=== PATIENT | male | born 1950 | race Caucasian/White ===

== ENCOUNTER 2019-04-14 06:34 | Outpatient (CLI) | payer MEDICARE ==
[~2019-04-14] VITALS: Ht 175.3 cm; Wt 144.2 kg
[2019-04-14 14:05] VITALS: BP 137/80
[2019-04-14 14:42] LABS: BILIRUBIN,URINE NEGATIVE (NEGATIVE); CLARITY,URINE CLEAR; COLOR,URINE YELLOW; GLUCOSE, URINE (UA) 4+ (NEGATIVE); KETONES,URINE NEGATIVE (NEGATIVE); LEUKOCYTE ESTERASE ,URINE 1+ (NEGATIVE); NITRITE,URINE NEGATIVE (NEGATIVE); PH,URINE 6 (5-9); PROTEIN,URINE NEGATIVE (NEGATIVE); UROBILINOGEN,URINE NORMAL (NORMAL)
[2019-04-14 14:44] LABS: BASOPHILS # (AUTO) 0.1 10^3/uL (0.0-0.1); BASOPHILS % (AUTO) 1 % (0-10); EOSINOPHILS # (AUTO) 0.1 10^3/uL (0.0-0.3); EOSINOPHILS % (AUTO) 1 % (0-10); HEMATOCRIT 41 % (40-54); HEMOGLOBIN 13.7 G/DL (13.3-17.7); LYMPHOCYTES # (AUTO) 1.6 X 10^3 (1.0-4.0); LYMPHOCYTES % (AUTO) 13 % (12-44); MEAN CORPUSCULAR HEMOGLOBIN 28 PG (25-34); MEAN CORPUSCULAR HGB CONC 33 G/DL (32-36); MEAN CORPUSCULAR VOLUME 84 FL (80-99); MEAN PLATELET VOLUME 11.9 FL (7.4-10.4); MONOCYTES # (AUTO) 1.1 X 10^3 (0.0-1.0); MONOCYTES % (AUTO) 9 % (0-12); NEUTROPHILS # (AUTO) 9.5 X 10^3 (1.8-7.8); NEUTROPHILS % (AUTO) 77 % (42-75); PLATELET COUNT 268 10^3/uL (130-400); RED CELL DISTRIBUTION WIDTH 14.1 % (10.0-14.5); WHITE BLOOD COUNT 12.4 10^3/uL (4.3-11.0)
[2019-04-14 14:47] LABS: SMEAR SCAN COMMENT YES
--- NOTE | 2019-04-14 14:52 | Diagnostic Imaging Report ---
INDICATION: Preop for left total knee replacement EXAMINATION: PA and lateral views of the chest. FINDINGS: The heart size and vascularity are normal. Lungs are clear. There is no effusion. There is no acute bony abnormality. IMPRESSION: No acute abnormality is seen. Dictated by: Dictated on workstation # [id number]
[2019-04-14 15:00] LABS: BACTERIA,URINE FEW /HPF; PROTHROMBIN TIME PATIENT 13.5 SEC (12.2-14.7)
[2019-04-14 15:11] LABS: ALANINE AMINOTRANSFERASE 72 U/L (0-55); ALBUMIN 4.4 GM/DL (3.2-4.5); ALKALINE PHOSPHATASE 112 U/L (40-136); BILIRUBIN,TOTAL 0.5 MG/DL (0.1-1.0); BUN/CREATININE RATIO 10; CALCIUM 9.6 MG/DL (8.5-10.1); CARBON DIOXIDE 23 MMOL/L (21-32); CHLORIDE 99 MMOL/L (98-107); CREATININE SERUM 0.87 MG/DL (0.60-1.30); GFR ESTIMATED > 60; GLUCOSE 316 MG/DL (70-105); POTASSIUM 4.5 MMOL/L (3.6-5.0); SODIUM 134 MMOL/L (135-145); TOTAL PROTEIN 7.6 GM/DL (6.4-8.2)
[2019-04-14 15:14] LABS: ERYTHROCYTE SEDIMENTATION RATE 18 MM/HR (0-30)
[2019-04-14] MEDS ORDERED: ASPI-983 PO (15:59)
[2019-04-14] MEDS ORDERED: IRBE300T18 PO (15:59)
[2019-04-14] MEDS ORDERED: NA P133E22 RC (15:59)
[2019-04-14] MEDS ORDERED: INSU100V16 SQ (15:59)
[2019-04-14] MEDS ORDERED: FLUT16SP22 NS (15:59)
[2019-04-14] MEDS ORDERED: MAGN400O7 PO (15:59)
[2019-04-14] MEDS ORDERED: ACET325T38 PO ×2 (15:59)
[2019-04-14] MEDS ORDERED: AMLO5TAB4 PO (15:59)
[2019-04-14] MEDS ORDERED: BISA10SU58 RC (15:59)
[2019-04-14] MEDS ORDERED: NYST1POW22 TOP (15:59)
[2019-04-14] MEDS ORDERED: [UNRECOGNIZED DRUG - CODE] PO (15:59)
[2019-04-14] MEDS ORDERED: ATOR10TA PO (15:59)
[2019-04-14] MEDS ORDERED: CITA20TA12 PO (15:59)
[2019-04-14] MEDS ORDERED: INSA70301U SQ (15:59)
== END 2019-04-14 15:00 | disposition home or self-care (01) ==
LOC: PREOP 06:34
PROVIDERS: ATTEND Orthopaedic Surgery
DX: Z01.812 Encounter for preprocedural laboratory examination (principal); Z01.811 Encounter for preprocedural respiratory examination; Z01.810 Encounter for preprocedural cardiovascular examination; M17.12 Unilateral primary osteoarthritis, left knee
CPT/HCPCS: 36415; 71046; 80053; 81000; 85025; 85610; 85652; 86850; 86900; 86901; 87077; 87081; 87088; 93005

== ENCOUNTER 2019-04-20 06:07 | Inpatient (IN) | payer MEDICARE, MEDICAID ==
--- NOTE | 2019-04-13 18:31 | HISTORY AND PHYSICAL ---
DATE OF SERVICE: INPATIENT ADMISSION DATE OF ADMISSION: 04/20/2019. This will be for inpatient admission on 04/20/2019, for left total knee arthroplasty. HISTORY OF PRESENT ILLNESS: The patient is a 68-year-old gentleman with progressive worsening left knee pain. Radiographs reveal severe medial and patellofemoral arthrosis. He has undergone treatment with injections without relief. He reports functional impairment and limitations because of the knee and due to failure to improve with conservative measures, the patient elected to proceed with surgical intervention. REVIEW OF SYSTEMS: No recent chest pain, shortness of breath or dysuria. PAST MEDICAL HISTORY: Allergic rhinitis, chronic renal failure, constipation, COPD, diabetes type 2, hyperlipidemia, and hypertension. PAST SURGICAL HISTORY: Cholecystectomy. FAMILY HISTORY: Noncontributory. PRIMARY CARE PROVIDER: Dr. Gold. MEDICATIONS: Aspirin, acetaminophen, Flonase, Humalog, irbesartan, Levemir, Lipitor, Milk of Magnesia, Norvasc, tramadol, calcium, loratadine, NovoLog, and Prilosec. ALLERGIES: No known drug allergies. SOCIAL HISTORY: The patient chews one can of tobacco per day. Occasional cigarette usage. Does drink alcohol regularly. PHYSICAL EXAMINATION: GENERAL: The patient is a well-developed, well-nourished, in no acute distress. HEENT: Normocephalic, atraumatic. Pupils are equal, round, reactive to light. Oropharynx is clear. NECK: Supple, no lymphadenopathy. LUNGS: Clear to auscultation bilaterally. HEART: Regular rate and rhythm. ABDOMEN: Soft, nontender, nondistended. EXTREMITIES: The left knee demonstrates varus alignment. He has moderate effusion. He has patellofemoral crepitus with range of motion 0/5/120. He is tender along the medial femoral condyle and lateral femoral condyle. There is no varus valgus laxity. Negative anterior and posterior drawer. IMPRESSION: Left knee osteoarthritis. PLAN: Left total knee arthroplasty. The risks, benefits, options, ramifications and recovery were discussed at length with the patient. He understands and wishes to proceed. Specifically, the patient is at high risk for complications due to his associated comorbidities. The patient will require regular inpatient admission due to pain management, gait abnormalities and comorbidities. Date of surgery will be 04/20/2019. Job ID: [id number] DocumentID: [id number] Dictated Date: 04/10/2019 14:49:54 Residential Aide Date: 04/10/2019 15:12:47 Dictated By: APRIL URIBE MD
--- NOTE | 2019-04-14 16:01 | NUR ---
UPDATED MED REC WITH MEDICATION REVIEW REPORT FROM [facility] THAT WAS SENT OVER BY PREOP NURSE.
[2019-04-20] VITALS (11 sets, daily range): BP systolic 117–172; BP diastolic 75–87
[~2019-04-20] VITALS: Ht 175.3 cm; Wt 144.2 kg
[~2019-04-20 06:07] MED LIST: ACET325T38 PO; AMLO5TAB4 PO; ASPI-983 PO; ATOR10TA PO; BISA10SU58 RC; CITA20TA12 PO; FLUT16SP22 NS; INSA70301U SQ; INSU100V16 SQ; IRBE300T18 PO; MAGN400O7 PO; NA P133E22 RC; NYST1POW22 TOP; [UNRECOGNIZED DRUG - CODE] PO
[2019-04-20] MEDS: LACTATED RINGERS 1,000 ML IV PRN ×2 (06:45→07:43)
[2019-04-20] MEDS ORDERED: CEFUROXIME INJECTION 1,500 MG in WATER (STERILE) FOR INJECTION 15 ML IV ONE (06:45)
[2019-04-20] MEDS ORDERED: SEVOFLURANE (ULTANE) 15 ML INHAL SOLN ONE (06:54)
[2019-04-20] MEDS ORDERED: LIDOCAINE PF 2% 5 ML (XYLOCAINE) VIAL ONE (06:54)
[2019-04-20] MEDS ORDERED: ONDANSETRON 4 MG/2 ML (SDV) Z0FRAN ONE (06:54)
[2019-04-20] MEDS ORDERED: proPOfol 200 MG/20 ML (DIPRIVAN) VIAL IV ONE (06:54)
[2019-04-20] MEDS ORDERED: BUPIVACAINE 0.5% 30 ML (SENSORCAINE) VIAL ONE (06:54)
[2019-04-20] MEDS ORDERED: MIDAZOLAM 2 MG/2 ML (VERSED) VIAL ONE (06:55)
[2019-04-20] MEDS ORDERED: fentaNYL INJECTION 100 MCG/2 ML AMP ONE ×2 (06:55→07:48)
[2019-04-20] MEDS ORDERED: morphine PCA 100 MG/100 ML BAG IV PRN (07:15)
[2019-04-20] MEDS ORDERED: ACETAMINOPHEN 325 MG TABLET PO PRN (07:15)
[2019-04-20] MEDS ORDERED: CATHETER FLUSH 10 ML SYR IV PRN (07:15)
[2019-04-20] MEDS ORDERED: diphenhydrAMINE 50 MG/ML INJ (BENADRYL) IVP PRN (07:15)
--- NOTE | 2019-04-20 07:23 | Progress Note-Pre Operative ---
Pre-Operative Progress Note H&P Reviewed The H&P was reviewed, patient examined and no changes noted. Date Seen by Provider: Apr 20, 2019 Time Seen by Provider: 07:11 Date H&P Reviewed: Apr 20, 2019 Time H&P Reviewed: 07:23 Pre-Operative Diagnosis: left knee primary osteoarthritis APRIL URIBE MD Apr 20, 2019 07:23
--- NOTE | 2019-04-20 07:24 | Progress Note-Post Operative ---
Post-Operative Progess Note Surgeon (s)/Neurology Stroke Physician (s) Surgeon APRIL URIBE MD Neurology Stroke Physician: Jefe Peña Pre-Operative Diagnosis left knee primary osteoarthritis Post-Operative Diagnosis left knee primary osteoarthritis Procedure & Operative Findings Date of Procedure 04/20/19 Procedure Performed/Findings left total knee arthroplasty Anesthesia Type GETA Estimated Blood Loss Estimated blood loss (mL): minimal Specimens/Packing Specimens Removed none Packing: none APRIL URIBE MD Apr 20, 2019 07:24
[2019-04-20] MEDS ORDERED: OXYC1TAB87 PO (07:28)
--- NOTE | 2019-04-20 07:28 | D/C HH Face to Face Order ---
D/C Face to Face Orders Reconcile Patient Problems Problems Reviewed?: Yes Instructions for Patient Via Rachel[facility]BI, Patient Instructions/FollowUp: three weeks Physician to follow Patient: three weeks Discharge Diet for Home: ADA Diet Patient Data-Allergies,Ht & Wt Patient Allergies: Coded Allergies: No Known Drug Allergies (Unverified , 04/14/19) Height (Feet): 5 Height (Inches): 9.00 Weight (Pounds): 318 Weight (Ounces): 0.0 Home Health Need/Face to Face Date of Face to Face: Apr 20, 2019 Clinical Findings: Instability, Muscle weakness, Non or partial weight bearing, Pain with ambulation, Unsteady gait I have seen Pt ashe-my-vnli: Yes Discharged To: Home Diagnosis/Conditions: left total knee arthroplasty Patient is Homebound due to: Elio fall risk due to instabilty, Muscle weakness, Pain w/ambulation Homebound Status Due to the above stated illness, injury or surgical procedure (medical condition or diagnosis) and associated clinical findings, the patient is homebound because of his/her inability to leave home except with aid of a supportive device and/or person AND leaving the home requires a considerable and taxing effort or is medically contraindicated. Pt req the following assistanc: [facility] Nursing Orders Home Health Services Order: Physical Therapy-Evaluate & Treat DC left knee regulo and apply steri strips 05/03/19 Home Health Infusion Therapy Line Start Date: Apr 20, 2019 Therapy Orders Therapy Orders: Physical Therapy, PT to assess for OT Therapy Specific Orders: Eval assistive deivces, Teach enviro mod ifications/safety, Gait training, Increase strength/endurance, Provider maintenance therapy, Restore ROM Certify Stmt I certify that this patient is under my care and that I, a nurse practitioner or a physician; a perinatal breastfeeding assistant working with me, had a face to face encounter that - meets the physician face to face encounter requirements with this patient as dated. APRIL URIBE MD Apr 20, 2019 07:28
[2019-04-20] MEDS ORDERED: INTRA-ARTICULAR IU ONE ×5 (08:00)
[2019-04-20] MEDS ORDERED: TRANEXAMIC ACID 100 MG/ML 10 ML INJECTION IV ONE (08:06)
[2019-04-20] MEDS ORDERED: ESMOLOL 100 MG/10 ML (BREVIBLOC) VIAL ONE (08:06)
[2019-04-20] MEDS ORDERED: ROCURONIUM 10 MG/ML 5 ML SYRINGE IV ONE (08:06)
[2019-04-20] MEDS ORDERED: SUCCINYLCHOLINE INJ 100 MG/5 ML SYR ONE (08:06)
[2019-04-20] MEDS ORDERED: NEOSTIGMINE 3 MG/3 ML VIAL ONE (08:38)
[2019-04-20] MEDS ORDERED: GLYCOPYRROLATE 0.2 MG/ML (ROBINUL) 2 ML VIAL ONE (08:38)
[2019-04-20] MEDS ORDERED: morphine INJ 10 MG/ML 1ML (SYR OR VIAL) ONE (09:18)
[2019-04-20] MEDS ORDERED: ONDANSETRON 4 MG/2 ML (SDV) Z0FRAN IVP PRN (09:30)
[2019-04-20] MEDS ORDERED: morphine INJ 10 MG/ML 1ML (SYR OR VIAL) IVP ONE (09:30)
--- NOTE | 2019-04-20 09:52 | Diagnostic Imaging Report ---
CLINICAL INDICATION: Postop left knee. EXAM: X-ray of the left knee, AP and lateral views. COMPARISON: None. FINDINGS: There are postop changes with the left knee arthroplasty components in good position. There is air overlying the left knee joint region and soft tissue. Anterior knee skin regulo and a compression device overlying the anterior knee are seen. IMPRESSION: Left total knee arthroplasty with immediate postop changes. There is no unexpected radiodense foreign object. Dictated by: Dictated on workstation # [id number]
--- NOTE | 2019-04-20 11:09 | Progress Note ---
Standard Progress Note Progress Notes/Assess & Plan Date Seen by a Provider: Apr 20, 2019 Time Seen by a Provider: 09:25 Progress/Assessment & Plan no complaint radiographs--HW well positioned without fracture LLE-- 2 plus DP pulse with brisk cap refill. Intact DF and PF of toes and ankle. sensation intact throughout. s/p LTKA mobilize as able APRIL URIBE MD Apr 20, 2019 11:09
[2019-04-20] MEDS: NS IV 1000 ML 1,000 ML IV SCH ×2 (12:15→22:00)
[2019-04-20] MEDS: SENNA W/DOCUSATE (SENOKOT S) TABLET PO SCH ×2 (12:17→20:43)
--- NOTE | 2019-04-20 13:01 | OPERATIVE REPORT ---
DATE OF SERVICE: 04/20/2019 PREOPERATIVE DIAGNOSIS: Left knee primary osteoarthritis. POSTOPERATIVE DIAGNOSIS: Left knee primary osteoarthritis. PROCEDURE: Left total knee arthroplasty. SURGEON: Shaq Uribe MD CHIEF ARCHITECT: Jefe Peña, who assisted throughout the procedure and closed the incision. ANESTHESIA: General endotracheal plus regional nerve block by Jenniffer Baldwin CRNA. TOURNIQUET TIME: 70 minutes at 300 mmHg. ESTIMATED BLOOD LOSS: Minimal. DRAINS: None. COMPLICATIONS: None. POSTOPERATIVE PLAN: As per routine protocol. The patient was transferred to the recovery room awake and in stable condition. MATERIALS: Microport cemented size 6 femur, cemented size 6 tibia with 50 mm stem and a 10 mm insert and a 35 cemented button. STATEMENT OF MEDICAL NECESSITY: The patient is a 68-year-old gentleman with progressively worsening left knee pain. Radiographs revealed severe tricompartmental osteoarthritis. He had undergone treatment with injections, anti-inflammatories, and rest without relief. Due to functional impairment and failure to improve with conservative measures, the patient elected to proceed with surgical intervention. DESCRIPTION OF PROCEDURE: After risks and benefits of procedure were discussed and questions were answered and informed consent was signed and placed on the chart, the operative site was confirmed in the preoperative holding area initialed by the surgeon. The patient was transferred to the operating room and after adequate levels of general endotracheal anesthetic were obtained, a timeout was called, confirming the operative site. The left lower extremity was prepped and draped in the usual sterile fashion with the leg elevated and the knee flexed. Tourniquet was inflated to 300 mmHg. Standard anterior approach was utilized. Hemostasis was obtained with cautery. A medial parapatellar arthrotomy was performed leaving 1 cm cuff on the patella for later reattachment. A portion of the fat pad was resected. A subperiosteal release was performed on the proximal medial tibia being careful to stay on the bony surface. The ACL was resected. The intramedullary guide was passed into the femur. The distal cutting block was placed and distal cut was made. The femur was sized to a size 6 and 6 cutting block was placed parallel to the epicondylar axis and cuts were made from posterior to anterior. Subperiosteal release was then carefully performed on the posterior distal femur being careful to stay on the bony surface. Intramedullary guide was then passed into the tibia. The drop mo transected the intermalleolar axis. After pinning the cutting block in place, cut was made. The baseplate was positioned. The drop mo transected the intermalleolar axis. The cut was made. The tibia was prepared with the drill and keel punch. Due to his poor bone quality, it was elected to place a stem. The femoral trial was placed and the trochlear cut was made. The patella was then prepared by using the freehand technique and resecting 10 mm off the undersurface. The peg guide was placed and the peg holes were drilled. The trials were inserted with 10 mm insert. Full extension was easily obtained and 120 degrees of flexion with gravity was easily obtained. The patella tracked well. There was no anterior/posterior or medial/lateral laxity in flexion or extension. The trials were removed. The joint was irrigated with pulse lavage. Periarticular block was placed in the posterior capsule, medial and lateral retinaculum and extensor mechanism as well as the subcutaneous tissue. The bone ends were irrigated and dried and the tibia was cemented into position. Excessive cement was removed. Once excessive cement was removed, the superior surface was irrigated and dried. The polyethylene insert was placed. Distal femur was irrigated and dried and the femoral prosthesis was cemented into position. Excessive cement was removed. The knee was brought into full extension. Once cement had cured, the undersurface of patella was irrigated and dried. The patellar button was cemented into position. Excessive cement was removed. Once the cement had cured, the knee was taken through range of motion. There was no anterior/posterior or medial/lateral laxity in flexion or extension. The patella tracked well. The joint was further irrigated with pulse lavage. The arthrotomy was closed with #2 Tevdek in [id number]-ofwwd interrupted fashion. The knee was flexed. Patella tracked well with no undue tension at the repair site. Subcutaneous tissues were irrigated using a total of 6 liters throughout the procedure. A 0 Vicryl was used throughout the procedure. A 0 Vicryl was used to close the deep subcutaneous layer, 2-0 Vicryl for the superficial subcutaneous layer. [place] were used on the skin. A soft dressing was applied. The patient was transferred to the recovery room awake and in stable condition. Job ID: [id number] DocumentID: [id number] Dictated Date: 04/20/2019 09:14:10 Aquatics Coordinator Date: 04/20/2019 13:00:09 Dictated By: SHAQ URIBE MD
--- NOTE | 2019-04-20 13:27 | History & Physical-Hospitalist ---
History of Present Illness HPI/Chief Complaint Patient is a 68y/o male that was admit for observation following surgery on his left knee today. The patient says that he hurt his knee years ago in a hurting accident and waited to have surgery until now because it started to cause him pain recently. He denies nausea, vomiting, dizziness, chest pain, cough, SOB, stomach pain, numbness, tingling, weakness. Patient was still groggy from sedation from surgery. Source: patient Date Seen 04/20/19 Time Seen by a Provider: 13:20 Attending Physician Shaq Marshall MD PCP No,Local Physician Referring Physician Date of Admission Apr 20, 2019 at 06:07 Home Medications & Allergies Home Medications Reviewed patient Home Medication Reconciliation performed by pharmacy medication reconciliations special systems technician and/or nursing. Patients Allergies have been reviewed. Allergies Allergies Coded Allergies No Known Drug Allergies (Unverified04/14/19) Past Dikfnzi-Ydyhpd-Wzommd Hx Patient Social History Alcohol Use: Rarely Uses Recreational Drug Use: No Smoking Status: Current Everyday Smoker Type Used: Cigarettes Physical Abuse Screen: No Sexual Abuse: No Recent Foreign Travel: No Contact w/other who traveled: No Recent Hopitalizations: No Recent Infectious Disease Expo: No Immunizations Up To Date Date of Pneumonia Vaccine: Jun 11, 2017 Seasonal Allergies Seasonal Allergies: Yes Past Medical History Surgeries: Gallbladder Currently Using CPAP: Yes (didn't bring own cpap) Gastrointestinal: Gastroesophageal Reflux, Chronic Constipation Musculoskeletal: Arthritis Psychosocial: Depression History of Blood Disorders: No Family History Diabetes mellitus 19 MOTHER G8 BROTHER Review of Systems Constitutional: see HPI Respiratory: see HPI Cardiovascular: see HPI Gastrointestinal: see HPI Psychiatric/Neurological: See HPI Physical Exam Physical Exam Vital Signs Vital Signs - First Documented 04/20/19 06:30 Temp 98.0 Pulse 76 Resp 20 B/P (MAP) 133/75 Capillary Refill : Less Than 3 Seconds Height, Weight, BMI Height: 5'9.00" Weight: 318lbs. 0.0oz. 144.657738qt; 47.0 BMI Method: General Appearance: No Apparent Distress, WD/WN Respiratory: Chest Non Tender, Lungs Clear, Normal Breath Sounds, No Accessory Muscle Use, No Respiratory Distress Cardiovascular: Regular Rate, Rhythm, No Edema, No Gallop, No JVD, No Murmur, Normal Peripheral Pulses Gastrointestinal: Normal Bowel Sounds, No Pulsatile Mass, Non Tender, Soft Extremity: Normal Capillary Refill, Non Tender, No Calf Tenderness, No Pedal Edema Neurologic/Psychiatric: Other (Patient was still groggy from sedation following surgery.) Skin: Warm/Dry Results Results/Procedures Labs Patient resulted labs reviewed. Assessment/Plan Admission Diagnosis Left knee surgery Assessment and Plan Left knee surgery - bmp and lipid panel - blood glucose - PT/OT - Aspirin - pain meds IDDM - monitor blood sugar - continue insulin tx HTN - monitor BP and restart amlodipine if SBP rises over 130 - continue ARB High cholesterol - restart atrovostatin AVELINO - get CPAP is patient stays overnight FENGIPPX regular diet SCDs and OPAL AUGUSTE,MED STUDENT Apr 20, 2019 13:27
--- NOTE | 2019-04-20 13:58 | Consultation - Hospitalist ---
OPAL CÁRDENAS,MED STUDENT 04/20/19 1:58pm: HPI History of Present Illness: HPI/Chief Complaint Patient is a 68y/ male was admitted following his left total knee replacement. patient denies headache, nausea, vomiting, dizziness, chest pain, cough, SOB, stomach pain, weakness, numbness, tingling. Patient was groggy, most likely d/t sedation from surgery Source: patient Date Seen 04/20/19 Attending Physician Shaq Marshall MD PCP No,Local Physician Referring Physician Date of Admission Apr 20, 2019 at 06:07 Home Medications & Allergies Home Medications Reviewed patient Home Medication Reconciliation performed by pharmacy medication reconciliations diesel automotive technician and/or nursing. Patients Allergies have been reviewed. Allergies Allergies Coded Allergies No Known Drug Allergies (Unverified04/14/19) Past Swxzvxd-Fozvhb-Ahisjk Hx Patient Social History Alcohol Use: Rarely Uses Recreational Drug Use: No Smoking Status: Current Everyday Smoker Type Used: Cigarettes Physical Abuse Screen: No Sexual Abuse: No Recent Foreign Travel: No Contact w/other who traveled: No Recent Hopitalizations: No Recent Infectious Disease Expo: No Immunizations Up To Date Date of Pneumonia Vaccine: Jun 11, 2017 Seasonal Allergies Seasonal Allergies: Yes Past Medical History Surgeries: Gallbladder Currently Using CPAP: Yes (didn't bring own cpap) Gastrointestinal: Gastroesophageal Reflux, Chronic Constipation Musculoskeletal: Arthritis Psychosocial: Depression History of Blood Disorders: No Family History Diabetes mellitus 19 MOTHER G8 BROTHER Review of Systems Constitutional: see HPI Respiratory: see HPI Gastrointestinal: see HPI Psychiatric/Neurological: See HPI Physical Exam Physical Exam Vital Signs Vital Signs - First Documented 04/20/19 06:30 Temp 98.0 Pulse 76 Resp 20 B/P (MAP) 133/75 Capillary Refill : Less Than 3 Seconds Height, Weight, BMI Height: 5'9.00" Weight: 318lbs. 0.0oz. 144.989227fx; 47.0 BMI Method: General Appearance: No Apparent Distress, WD/WN, Obese Respiratory: Chest Non Tender, Lungs Clear, Normal Breath Sounds, No Accessory Muscle Use, No Respiratory Distress Cardiovascular: Regular Rate, Rhythm, No Edema, No Gallop, No JVD, Normal Peripheral Pulses Gastrointestinal: No Pulsatile Mass, Non Tender, Soft Extremity: Normal Capillary Refill, Non Tender, No Calf Tenderness, No Pedal Edema Neurologic/Psychiatric: Other (still groggy, most likely d/t sedation from surgery ) Skin: Normal Color, Warm/Dry Results Results/Procedures Labs Patient resulted labs reviewed. Assessment/Plan Assessment and Plan Assess & Plan/Chief Complaint Left knee surgery - management per primary IDDM - monitor blood sugar - continue insulin tx HTN - monitor BP and restart amlodipine as needed - continue ARB High cholesterol - restart atorvastatin FENGIPPX diabetic diet SCDs and ASA and lovenox SHIRA JMIENEZ MD 04/20/19 3:25pm: HPI History of Present Illness: HPI/Chief Complaint Pt is a 68CM with a PMH of IDDMII, HTN who was admitted postoperatively following left TKA. He denies any complaints to me at this time. States his pain is present but manageable and is about to work with PT. No other complaints or concerns. I am consulted for medical management. Referring Physician Dr Marshall Past Oairxcz-Qzxnrl-Tikeov Hx Past Med/Social Hx: Reviewed Nursing Past Med/Soc Hx Family History Reviewed Nursing Family Hx Diabetes mellitus 19 MOTHER G8 BROTHER Assessment/Plan Assessment and Plan Assess & Plan/Chief Complaint Consulted for medical management. Continue management of postop TKA per primary. Will resume insulin for IDDM. Hold BP meds currently due to hypotension. Diagnosis/Problems Diagnosis/Problems (1) Insulin dependent diabetes mellitus Status: Chronic (2) Essential (primary) hypertension Status: Chronic (3) Osteoarthritis of left knee Qualifiers: Osteoarthritis type: primary Qualified Codes: M17.12 - Unilateral primary osteoarthritis, left knee Supervisory-Addendum Brief Verification & Attestation Participated in pt care: history, MDM, physical Personally performed: exam, history, MDM, supervision of care Care discussed with: Medical Student Procedures: n/a Results interpretation: Verified all documentation Verification and Attestation of Medical Student E/M Service A medical student performed and documented this service in my presence. I reviewed and verified all information documented by the medical student and made modifications to such information, when appropriate. I personally performed the physical exam and medical decision making. Shira Jimenez, Apr 20, 2019,15:23 OPAL CÁRDENAS,MED STUDENT Apr 20, 2019 1:58 pm SHIRA JIMENEZ MD Apr 20, 2019 3:25 pm
--- NOTE | 2019-04-20 14:32 | NUR ---
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 He wished to pray together for health and encouragement. Pt states he is determined to make changes in his health so he can return to fishing and other activities he once enjoyed.
--- NOTE | 2019-04-20 14:51 | Physical Therapy Evaluation ---
PT Evaluation-General Medical Diagnosis Admission Date Apr 20, 2019 at 06:07 Medical Diagnosis: left TKA Onset Date: Apr 20, 2019 Therapy Diagnosis Therapy Diagnosis: impaired mobility, strength, endurance, ROM Height/Weight Height (Feet): 5 Height (Inches): 9.00 Weight (Pounds): 318 Weight (Ounces): 0.0 Precautions Precautions/Isolations: Fall Prevention, Standard Precautions Weight Bear Status Weight Bearing/Tolerated Referral Physician: Jefe Peña Reason for Referral: Evaluation/Treatment Medical History Pertinent Medical History: COPD, DM, HTN Additional Medical History hyperlipidemia, chronic renal failure, constipation, cholecystectomy Social History Home: Single Level Current Living Status: Alone Entry Into Home: Level Entry Prior/Core FIM Prior Level of Function Therapy Code Descriptions/Definitions Functional [place] Measure: 0=Not Assessed/NA 4=Minimal Assistance 1=Total Assistance 5=Supervision or Setup 2=Maximal Assistance 6=Modified [place] 3=Moderate Assistance 7=Complete [place] Therapy Quality Codes: 6 Independent with activity with or without an assistive device 5 Patient requires set up or clean up by helper. Patient completes activity by themselves 4 Supervision or touching assist (CGA). [place] provide cues , steadying assist 3 The helper provides less than half the effort to complete the activity 2 The helper provides more than half the effort to complete the activity 1 Dependent. The helper does all the effort to complete an activity 7 Patient refused to complete or attempt activity 9 The patient did not perform the activity before the current illness or injury 88 Not attempted due to Medical conditions or safety concerns Functional Abilities and Goals: Independent: Patient completed the activities by him/herself, with or without an assistive device, with no assistance from a helper. Needed Some Help: Patient needed partial assistance from another person to complete activities. Dependent: A helper completed the activities for the patient. Unknown: Not Applicable: Bed Mobility: 6 Transfers (B,C,W/C) (FIM): 6 Gait: 6 Indoor Mobility (Ambulation): Independent Patient states he was using a rolling walker previously. PT Evaluation-Current Subjective Patient in bed pre tx, agrees to PT, has 7/10 pain in left knee. Patient is very drowsy. Pt/Family Goals to be independent at home Objective Patient Orientation: Person, Place, Situation Attachments: Oxygen, IV ROM/Strength ROM Lower Extremities left knee extension +5 degrees, flexion 50 degrees Sensory Vision: Functional Hearing: Functional Sensation Right Lower Extremit: Intact Sensation Left Lower Extremity: Intact Transfers Therapy Code Descriptions/Definitions Functional [place] Measure: 0=Not Assessed/NA 4=Minimal Assistance 1=Total Assistance 5=Supervision or Setup 2=Maximal Assistance 6=Modified [place] 3=Moderate Assistance 7=Complete [place] Transfers (B, C, W/C) (FIM): 2 Scootin Rollin Supine to/from Sit: 2 Sit to/from Stand: 4 Patient stood at the edge of the bed, he is not able to bear weight on his left knee, it thomas with weight bearing. He is able to take a couple of side steps (mostly hopping on his right leg) toward the head of the bed and sit back down. Patient is very drowsy and needs directions repeated frequently. Balance Sitting Static: Good Sitting Dynamic: Good Standing Static: Fair Standing Dynamic: Fair Treatment Supine TKA exercises x10 left side (AP, QS, HS, SAQ, SLR), CPM donned and fit to patient's leg and set to 45/-2. Polar care on. Assessment/Needs Patient has impaired mobility, strength, endurance, ROM post left TKA. He is very drowsy and cannot bear much weight on is left leg. Rehab Potential: Fair PT Short Term Goals Short Term Goals Time Frame: Apr 27, 2019 Transfers (B,C,W/C) (FIM): 4 Gait (FIM): 1 Gait Distance Comment: 40' Gait Level of Assist: 4 Gait Assistive Device: FWW PT Plan Problem List Problem List: Activity Tolerance, Functional Strength, Safety, Balance, Gait, Transfer, Bed Mobility, ROM Treatment/Plan Treatment Plan: Continue Plan of Care Treatment Plan: Bed Mobility, Education, Functional Activity Carlos, Functional Strength, Gait, Safety, Therapeutic Exercise, Transfers Treatment Duration: Apr 27, 2019 Frequency: 11 times per week Estimated Hrs Per Day: .25 hour per day Patient and/or Family Agrees t: Yes Safety Risks/Education Patient Education: Gait Training, Transfer Techniques, Correct Positioning, Safety Issues Teaching Recipient: Patient Teaching Methods: Demonstration, Discussion Response to Teaching: Reinforcement Needed Discharge Recommendations Plan Patient will perform bed mobility and transfer training, balance and endurance training, functional strengthening, stair training, gait training, and education, to improve functional mobility and independence at home. Therapy D/C Recommendations: Home w/ Family Support Time/GCodes Time In: 1417 Time Out: 1443 Total Billed Treatment Time: 26 Total Billed Treatment 1 visit RODERICKM 15' FA 11' BEAU SHER PT Apr 20, 2019 14:51
[2019-04-20] MEDS ORDERED: NA PHOS DI BA RC PRN (15:00)
[2019-04-20] MEDS ORDERED: NA PHOS M B RC PRN (15:00)
[2019-04-20] MEDS ORDERED: BISACODYL 10 MG SUPP (DULCOLAX) RC PRN (15:00)
[2019-04-20] MEDS ORDERED: FLEET ENEMA ADULT 1 EA BTL PR PRN (15:15)
[2019-04-20] MEDS ORDERED: CEFUROXIME INJECTION 750 MG in WATER (STERILE) FOR INJECTION 10 ML IV SCH (15:15)
[2019-04-20] MEDS: inSUlin ASPART (NovoLOG) 1 UNIT/0.01 ML (CHARGE PER UNIT) SC SCH (20:45)
[2019-04-20] MEDS: inSUlin ASPART/PROTA (NovoLOG 70/30) CHARGE PER UNIT SQ SCH (20:45)
[2019-04-20] MEDS: FLUTICASONE NASAL SPRAY (FLONASE) 16 GM BTL NS SCH (21:00)
[2019-04-21 00:25] VITALS: BP 139/89
[2019-04-21 04:00] VITALS: BP 146/83
[2019-04-21] MEDS: inSUlin ASPART (NovoLOG) 1 UNIT/0.01 ML (CHARGE PER UNIT) SC SCH ×4 (06:13→20:16)
[2019-04-21] MEDS: MULTIVIT W/MINERALS TAB (THERAGRAN M) PO SCH (06:13)
[2019-04-21] MEDS: inSUlin ASPART/PROTA (NovoLOG 70/30) CHARGE PER UNIT SQ SCH ×2 (06:14→17:08)
[2019-04-21 07:06] LABS: HEMOGLOBIN 11.2 G/DL (13.3-17.7)
--- NOTE | 2019-04-21 07:40 | Progress Note - Hospitalist ---
OPAL CÁRDENAS,MED STUDENT 04/21/19 7:40am: Subjective HPI/CC On Admission Date Seen by Provider: Apr 21, 2019 Time Seen by Provider: 06:45 Pt is a 68CM with a PMH of IDDMII, HTN who was admitted postoperatively following left TKA. He denies any complaints to me at this time. States his pain is present but manageable and is about to work with PT. No other complaints or concerns. I am consulted for medical management. Subjective/Events-last exam Patient says that he is feeling well and that the only thing that is bothering him is the pain in his L knee that comes and goes. He denies fever, chills, nausea, vomiting, headache, stomach pain, sob, chest pain. Objective Exam Vital Signs Vital Signs Date Time Temp Pulse Resp B/P (MAP) Pulse Ox O2 Delivery O2 Flow Rate FiO2 04/21/19 07:00 20 04/21/19 04:00 98.6 88 146/83 (104) 95 Nasal Cannula 2.00 Capillary Refill : Less Than 3 Seconds General Appearance: No Apparent Distress, WD/WN Respiratory: Chest Non Tender, Lungs Clear, Normal Breath Sounds, No Accessory Muscle Use, No Respiratory Distress Cardiovascular: Regular Rate, Rhythm, No Edema, No Gallop, No JVD, No Murmur, Normal Peripheral Pulses Gastrointestinal: No Pulsatile Mass, Soft, Tenderness (in RUQ and LUQ ) Extremity: Non Tender, No Calf Tenderness, No Pedal Edema Neurologic/Psychiatric: Oriented x3, No Motor/Sensory Deficits, Normal Mood/Affect Skin: Normal Color, Warm/Dry Results/Procedures Lab Laboratory Tests 04/21/19 06:31 Patient resulted labs reviewed. Assessment/Plan Assessment and Plan Assess & Plan/Chief Complaint Left knee surgery - management per primary IDDM - monitor blood sugar - continue insulin tx HTN - monitor BP and restart amlodipine as needed - continue ARB High cholesterol - restart atorvastatin CPAP - have family bring it from home FENGIPPX diabetic diet SCDs and ASA and lovenox Clinical Quality Measures DVT/VTE Risk/Contraindication: Risk Factor Score Per Nursin RFS Level Per Nursing on Admit: 4+=Very High SHIRA JIMENEZ MD 04/21/19 8:36am: Assessment/Plan Assessment and Plan Assess & Plan/Chief Complaint Doing well from medical point of view. Continue home meds. Continue PT/OT. Advised to bring in CPAP for AVELINO. Diagnosis/Problems Diagnosis/Problems (1) Osteoarthritis of left knee Qualifiers: Qualified Codes: M17.12 - Unilateral primary osteoarthritis, left knee (2) Essential (primary) hypertension Status: Chronic (3) Insulin dependent diabetes mellitus Status: Chronic Supervisory-Addendum Brief Verification & Attestation Participated in pt care: history, MDM, physical Personally performed: exam, history, MDM, supervision of care Care discussed with: Medical Student Procedures: n/a Results interpretation: Verified all documentation Verification and Attestation of Medical Student E/M Service A medical student performed and documented this service in my presence. I reviewed and verified all information documented by the medical student and made modifications to such information, when appropriate. I personally performed the physical exam and medical decision making. Shira Jimenez, Apr 21, 2019,08:36 OPAL CÁRDENAS,MED STUDENT Apr 21, 2019 7:40 am SHIRA JIMENEZ MD Apr 21, 2019 8:36 am
--- NOTE | 2019-04-21 07:47 | Anesthesia-General Post-Op ---
General Patient Condition Mental Status/LOC: Same as Preop Cardiovascular: Satisfactory Nausea/Vomiting: Absent Respiratory: Satisfactory Pain: Controlled Complications: Absent Post Op Complications Complications None Follow Up Care/Instructions Patient Instructions None needed. Anesthesia/Patient Condition Patient Condition Patient is doing well, no complaints, stable vital signs, no apparent adverse anesthesia problems. No complications reported per nursing. LEE DARBY CRNA Apr 21, 2019 07:47
--- NOTE | 2019-04-21 07:56 | Progress Note ---
Standard Progress Note Progress Notes/Assess & Plan Date Seen by a Provider: Apr 21, 2019 Time Seen by a Provider: 07:55 Progress/Assessment & Plan no complaint radiographs--HW well positioned without fracture LLE-- 2 plus DP pulse with brisk cap refill. Intact DF and PF of toes and ankle. sensation intact throughout. s/p LTKA mobilize as able Final Diagnosis no complaints less somnolent today Vital Signs Date Time Temp Pulse Resp B/P (MAP) Pulse Ox O2 Delivery O2 Flow Rate FiO2 04/21/19 07:00 20 04/21/19 04:00 98.6 88 23 146/83 (104) 95 Nasal Cannula 2.00 04/21/19 00:25 98.7 94 22 139/89 (106) 94 Nasal Cannula 2.00 04/20/19 20:00 98.7 85 18 137/84 (101) 98 Nasal Cannula 2.00 04/20/19 19:27 98 Nasal Cannula 2.00 04/20/19 16:00 98.1 92 18 117/77 (90) 98 Nasal Cannula 2.00 04/20/19 15:11 Nasal Cannula 2.00 04/20/19 12:00 20 04/20/19 10:10 Nasal Cannula 2 04/20/19 10:10 98.1 20 94 Nasal Cannula 2 04/20/19 10:00 18 94 Nasal Cannula 2 04/20/19 09:54 Nasal Cannula 2 04/20/19 09:52 Nasal Cannula 2 04/20/19 09:50 18 94 Nasal Cannula 2 04/20/19 09:40 OxyMask 6 04/20/19 09:40 18 95 OxyMask 6 04/20/19 09:30 18 96 OxyMask 6 04/20/19 09:25 OxyMask 6 04/20/19 09:20 18 96 OxyMask 6 04/20/19 09:13 OxyMask 6 04/20/19 09:13 97.8 24 96 OxyMask 6 I & O 04/21/19 07:00 Intake Total 2245 ml Output Total 975 ml Balance 1270 ml Laboratory Tests Test 04/20/19 16:25 04/20/19 20:28 04/21/19 05:15 04/21/19 06:31 Range/Units Glucometer 214 H 236 H 192 H 70-110 MG/DL Hemoglobin 11.2 L 13.3-17.7 G/DL Hematocrit 35 L 40-54 % LLE--dressing intact. NVI distally. Neg Ricardo's s/p LTKA reinforced the importance of ambulating/PT. APRIL URIBE MD Apr 21, 2019 07:56
[2019-04-21] MEDS: SENNA W/DOCUSATE (SENOKOT S) TABLET PO SCH ×2 (07:57→20:16)
[2019-04-21] MEDS: ASPIRIN E.C. 81 MG (ECOTRIN) TAB PO SCH ×2 (07:57→10:32)
[2019-04-21] MEDS: ATORVASTATIN 10 MG (LIPITOR) TABLET PO SCH (07:57)
[2019-04-21] MEDS: FLUTICASONE NASAL SPRAY (FLONASE) 16 GM BTL NS SCH ×2 (07:58→23:03)
[2019-04-21 08:00] VITALS: BP 145/87
[2019-04-21] MEDS ORDERED: ENOXAPARIN 30 MG/0.3 ML (LOVENOX) SYR SC SCH (08:00)
[2019-04-21] MEDS: ONDANSETRON 4 MG/2 ML (SDV) Z0FRAN IVP PRN (09:56)
--- NOTE | 2019-04-21 10:45 | Physical Therapy Daily Note ---
PT Daily Note-Current Subjective Patient states, "I can't move my leg. It hurts too much." PT educated patient on importance of exercise and ambulate to attain full benefit of elective procedure. Patient voices understanding. Pain Numeric Pain Scale: 8 Location: Left Location Body Site: Knee Pain Description: Acute Mental Status Patient Orientation: Person, Time, Situation Attachments: Oxygen, IV Transfers Therapy Code Descriptions/Definitions Functional [place] Measure: 0=Not Assessed/NA 4=Minimal Assistance 1=Total Assistance 5=Supervision or Setup 2=Maximal Assistance 6=Modified [place] 3=Moderate Assistance 7=Complete [place] Therapy Quality Codes: 6 Independent with activity with or without an assistive device 5 Patient requires set up or clean up by helper. Patient completes activity by themselves 4 Supervision or touching assist (CGA). [place] provide cues , steadying assist 3 The helper provides less than half the effort to complete the activity 2 The helper provides more than half the effort to complete the activity 1 Dependent. The helper does all the effort to complete an activity 7 Patient refused to complete or attempt activity 9 The patient did not perform the activity before the current illness or injury 88 Not attempted due to Medical conditions or safety concerns Transfers (B, C, W/C) (FIM): 5 Scootin Sit to/from Stand: 5 sit to stand transfer training x 3 sets/ patient ambulated to restroom for BM Weight Bearing Weight Bearing/Tolerated Gait Training Gait (FIM): 1 Distance (FIM): 1=up to 49 ft Distance: 15' Gait Level of Assist: 5 Gait Assistive Device: FWW slow, antalgic/extended UE's with FWW placement cues for body placement Exercises Seated Therapy Exercises: Ankle pumps, Long arc quads Seated Reps: 15 (2 sets AAROM left LE/AROM right LE) Assessment Patient tolerated minimal activity and requested to remain in restroom for BM. Call light in hand and nursing notified. PT Short Term Goals Short Term Goals Time Frame: Apr 27, 2019 Transfers (B,C,W/C) (FIM): 4 Gait (FIM): 1 Gait Distance Comment: 40' Gait Level of Assist: 4 Gait Assistive Device: FWW PT Plan Treatment/Plan Treatment Plan: Continue Plan of Care Treatment Plan: Bed Mobility, Education, Functional Activity Carlos, Functional Strength, Gait, Safety, Therapeutic Exercise, Transfers Treatment Duration: Apr 27, 2019 Frequency: 11 times per week Estimated Hrs Per Day: .25 hour per day Patient and/or Family Agrees t: Yes Time/GCodes Time In: 1009 Time Out: 1024 Total Billed Treatment Time: 15 Total Billed Treatment 1 visit FA 15 min JEAN URBANO PT Apr 21, 2019 10:45
[2019-04-21] MEDS: NS IV 1000 ML 1,000 ML IV SCH ×2 (10:55→20:21)
[2019-04-21 12:00] VITALS: BP 189/98
--- NOTE | 2019-04-21 13:04 | Discharge Inst-Skilled Nursing ---
Discharge Inst-Skilled NF Chief Complaint Pt is a 68CM with a PMH of IDDMII, HTN who was admitted postoperatively following left TKA. He denies any complaints to me at this time. States his pain is present but manageable and is about to work with PT. No other complaints or concerns. I am consulted for medical management. Patient Instructions Patient Problems: IDDMII, HTN, HLD, AVELINO Consult/Follow Up/Orders Follow Up Appt.: With Dr Marshall in 3 weeks. Skilled NF Admit to: [facility] Certification (SNF) I certify that SNF services are required to be given on an inpatient basis because of the above named patient's need for nursing home care on a continuing basis for the conditions(s) for which he/she was receiving inpatient hospital services prior to his/her transfer to the SNF. [facility] Facility Order: Nursing Services, Environmental Department Manager-Evaluate & Treat, Physical Therapy-Evaluate & Treat Oxygen Delivery Method: Nasal Cannula Discharge Diet: ADA Diet Daily Activity as Tolerated: Yes New & Resume Previous Orders Shira Jimenez Apr 21, 2019 13:02 SHIRA JIMENEZ MD Apr 21, 2019 1:04 pm
--- NOTE | 2019-04-21 15:19 | Occupational Therapy Eval ---
OT Evaluation-General/PLF Medical Diagnosis Admission Date Apr 20, 2019 at 06:07 Medical Diagnosis: left TKA Onset Date: Apr 20, 2019 Therapy Diagnosis Therapy Diagnosis: Decreased ADL skills Height/Weight Height (Feet): 5 Height (Inches): 9.00 Weight (Pounds): 318 Weight (Ounces): 0.0 Precautions Precautions/Isolations: Standard Precautions Safety Interventions: Reorient-PRN Weight Bear Status Weight Bearing Restriction: Weight Bearing/Tolerated Referral Physician: Jefe Peña Referral Reason: Activity Tolerance, Self Care, Evaluation/Treatment, Strengthening/ROM Medical History Pertinent Medical History: COPD, DM, HTN Additional Medical History Allergic rhinitis, chronic renal failure, Cholecystectomy Reviewed History: Yes Social History Home: [facility] [employer] in [place] per pt. Current Living Status: Entry Into Home: Level Entry ADL-Prior Level of Function Therapy Code Descriptions/Definitions Functional [place] Measure: 0=Not Assessed/NA 4=Minimal Assistance 1=Total Assistance 5=Supervision or Setup 2=Maximal Assistance 6=Modified [place] 3=Moderate Assistance 7=Complete [place] Therapy Quality Codes: 6 Independent with activity with or without an assistive device 5 Patient requires set up or clean up by helper. Patient completes activity by themselves 4 Supervision or touching assist (CGA). [place] provide cues , steadying assist 3 The helper provides less than half the effort to complete the activity 2 The helper provides more than half the effort to complete the activity 1 Dependent. The helper does all the effort to complete an activity 7 Patient refused to complete or attempt activity 9 The patient did not perform the activity before the current illness or injury 88 Not attempted due to Medical conditions or safety concerns Functional Abilities and Goals: Independent: Patient completed the activities by him/herself, with or without an assistive device, with no assistance from a helper. Needed Some Help: Patient needed partial assistance from another person to complete activities. Dependent: A helper completed the activities for the patient. Unknown: Not Applicable: ADL PLOF Comments Pt. states that he was independent with daily skills. States that he lives in a "care facility" and that he does not drive. Someone takes him "on a bus" to shop. States that he can complete bathing/dressing. Self Care: Unknown Functional Cognition: Unknown DME/Equipment: Tub/Shower DME/Equipment Comments Pt. has walker. Drive Self: No OT Current Status Subjective Pt. does not report pain level, but does report pain. Pt. keeps eyes closed and moans throughout treatment. States that he has had pain meds. Pt. on CPM when OT leaves room. States that it is comfortable. Appearance Pt. in bed. Pt. on CPM. Has attempted to use urinal in bed. Pt. is unable to place urinal and therefore spills on self. Mental Status/Objective Patient Orientation: Person Attachments: IV ADL-Treatment Therapy Code Descriptions/Definitions Functional [place] Measure: 0=Not Assessed/NA 4=Minimal Assistance 1=Total Assistance 5=Supervision or Setup 2=Maximal Assistance 6=Modified [place] 3=Moderate Assistance 7=Complete [place] Therapy Quality Codes: 6 Independent with activity with or without an assistive device 5 Patient requires set up or clean up by helper. Patient completes activity by themselves 4 Supervision or touching assist (CGA). [place] provide cues , steadying assist 3 The helper provides less than half the effort to complete the activity 2 The helper provides more than half the effort to complete the activity 1 Dependent. The helper does all the effort to complete an activity 7 Patient refused to complete or attempt activity 9 The patient did not perform the activity before the current illness or injury 88 Not attempted due to Medical conditions or safety concerns Toileting (FIM): 1 Pt. in bed. Has attempted to use urinal but is unable to place. Therefore, spills on self and on bed. Pt. keeps eyes closed and has difficulty listening to therapist, as he is consumed with having spilled urinal. OT obtains clean bed pads, gown, and cleansing wipes. Removed CPM and assisted pt. to roll side- side. Mod assist with this task. Removed padding and replaced with clean. Assisted pt. with changing gown and gave pt. cleansing wipe to wash nicko area at bed level, and to wash hands. Pt. declined further activity as he had just been up with PT. Assisted pt. with positioning left LE and placed CPM to comfort level. Assisted with positioning and bed and all needs met. Spoke with PT who states that pt. requires SBA for other transfers. Will attempt back tomorrow as pt. will tolerate. Education OT Patient Education: Correct positioning, Modified ADL techniques, Progress toward Goal/Update tx plan, Purpose of tx/functional activities, Reviewed precautions, Rehab process, Transfer techniques Teaching Recipient: Patient Teaching Methods: Demonstration, Discussion Response to Teaching: Verbalize Understanding, Return Demonstration OT Short Term Goals Short Term Goals Time Frame: Apr 28, 2019 Eating(FIM): 5 Grooming(FIM): 5 Bathing(FIM): 4 Upper Body Dressing(FIM): 5 Lower Body Dressing(FIM): 4 Toileting(FIM): 4 Transfers (B,C,W/C) (FIM): 4 Toilet/Commode Transfer(FIM): 4 Additional Short Term Goals: 1-Demonstrate ADL Tasks, 2-Verbalize Understanding, 3-ImproveStrength/Carlos 1=Demonstrate adherence to instructed precautions during ADL tasks. 2=Patient will verbalize/demonstrate understanding of assistive devices/modifications for ADL. 3=Patient will improve strength/tolerance for activity to enable patient to perform ADL's. OT Care Home Goals Care Home Goals Time Frame: May 05, 2019 Eating (FIM): 6 Grooming(FIM): 6 Bathing(FIM): 5 Upper Body Dressing(FIM): 5 Lower Body Dressing(FIM): 5 Toileting(FIM): 6 Transfers (B,C,W/C) (FIM): 6 Toilet/Commode Transfer(FIM): 6 Shower Transfer(FIM): 5 Additional Goals: 1-Demonstrate ADL Tasks, 2-Verbalize Understanding, 3- ImproveStrength/Carlos 1=Demonstrate adherence to instructed precautions during ADL tasks. 2=Patient will verbalize/demonstrate understanding of assistive devices/modifications for ADL. 3=Patient will improve strength/tolerance for activity to enable patient to perform ADL's. OT Education/Plan Problem List/Assessment Assessment: Decreased Activ Tolerance, Dependent Transfers, Impaired Bed Mobility, Impaired I ADL's, Impaired Self-Care Skills Discharge Recommendations Plan/Recommendations: Continue POC Comment Equipment needs to be determined. Treatment Plan/Plan of Care Treatment,Training & Education: Yes Patient would benefit from OT for education, treatment and training to promote independence in ADL's, mobility, safety and/or upper extremity function for ADL's. Plan of Care: ADL Retraining, Functional Mobility, UE Funct Exercise/Act Treatment Duration: May 05, 2019 Frequency: 5 times per week Estimated Hrs Per Day: .25 hour per day Agreement: Yes Rehab Potential: Good Time/GCodes Start Time: 14:35 Stop Time: 14:50 Total Time Billed (hr/min): 15 Billed Treatment Time 1, EVH NACCARATO,NABEEL OT Apr 21, 2019 15:19
--- NOTE | 2019-04-21 15:20 | NUR ---
CM/SS, respond to consult. Patient has established placement/residency with [facility] and will return there under skilled status when medically released. PH: [phone] FX: [phone] Aircraft Sales Representative has spoken with RN/Rina and JOSHUA/Bertha as well as [facility]. They are prepared for patient to return on the weekend, they have an on-call center receptionist, Shi Sanches, who will transport. orchid worker, Virginia Ontiveros, plans to come visit patient today. Routine skilled discharge, finalized orders need to be faxed to SNF at above number. Request that SNF bring whatever patient needs, like clothing, O2, wheelchair. Notify POA of discharge and arrangements.
--- NOTE | 2019-04-21 15:31 | Physical Therapy Daily Note ---
PT Daily Note-Current Subjective Patient agrees to PT. Pain Numeric Pain Scale: 8 Location: Left Location Body Site: Knee Pain Description: Acute Mental Status Patient Orientation: Person, Time Attachments: Oxygen, Polar Pack, IV Transfers Therapy Code Descriptions/Definitions Functional [place] Measure: 0=Not Assessed/NA 4=Minimal Assistance 1=Total Assistance 5=Supervision or Setup 2=Maximal Assistance 6=Modified [place] 3=Moderate Assistance 7=Complete [place] Therapy Quality Codes: 6 Independent with activity with or without an assistive device 5 Patient requires set up or clean up by helper. Patient completes activity by themselves 4 Supervision or touching assist (CGA). [place] provide cues , steadying assist 3 The helper provides less than half the effort to complete the activity 2 The helper provides more than half the effort to complete the activity 1 Dependent. The helper does all the effort to complete an activity 7 Patient refused to complete or attempt activity 9 The patient did not perform the activity before the current illness or injury 88 Not attempted due to Medical conditions or safety concerns Transfers (B, C, W/C) (FIM): 5 Scootin Rollin Supine to/from Sit: 5 Sit to/from Stand: 5 Bed to/from Chair: 5 Weight Bearing Weight Bearing/Tolerated Gait Training Gait (FIM): 5 Distance (FIM): 3=150 ft Distance: 150' Gait Level of Assist: 5 Gait Assistive Device: FWW antalgic, difficulty weight bearing left LE due to pain. Exercises Supine Ex: Ankle pumps, Quad Set, Heel Slides, Straight leg raise Supine Reps: 10 Seated Therapy Exercises: Long arc quads Seated Reps: 15 Assessment CPM 0-64 degrees and polar pack in place. Patient tolerated treatment well and returned to bed. PT Short Term Goals Short Term Goals Time Frame: Apr 27, 2019 Transfers (B,C,W/C) (FIM): 4 Gait (FIM): 1 Gait Distance Comment: 40' Gait Level of Assist: 4 Gait Assistive Device: FWW PT Plan Treatment/Plan Treatment Plan: Continue Plan of Care Treatment Plan: Bed Mobility, Education, Functional Activity Carlos, Functional Strength, Gait, Safety, Therapeutic Exercise, Transfers Treatment Duration: Apr 27, 2019 Frequency: 11 times per week Estimated Hrs Per Day: .25 hour per day Patient and/or Family Agrees t: Yes Time/GCodes Time In: 1410 Time Out: 1435 Total Billed Treatment Time: 25 Total Billed Treatment 1 visit EX 14 min GT 11 min JEAN URBANO PT Apr 21, 2019 15:31
--- NOTE | 2019-04-21 15:49 | NUR ---
Pt has CPM machine in place but keeps pushing against the machine causing it to error, PT worked with pt to try and get him to relax and not push against it but is unsuccessful.
--- NOTE | 2019-04-21 16:01 | Physical Therapy Progress Note ---
Therapy Progress Note Poorly fitting in CPM and unable to utilize secondary to leg size, weight and resistance. Field Representative/Health Education notified and RN is also aware. PT will reassess in a.m. if not dismissed to [place] tomorrow. JEAN URBANO PT Apr 21, 2019 16:01
[2019-04-21 16:04] VITALS: BP 181/88
[2019-04-21 19:32] VITALS: BP 195/96
[2019-04-21] MEDS: ENOXAPARIN 40 MG/0.4 ML (LOVENOX) SYR SC SCH (20:15)
[2019-04-21] MEDS: oxyCODONE/APAP 5/325MG (PERCOCET 5) TABLET PO PRN (20:16)
[2019-04-22 00:20] VITALS: BP 123/64
[2019-04-22 01:36] VITALS: BP 167/79
[2019-04-22] MEDS: oxyCODONE/APAP 5/325MG (PERCOCET 5) TABLET PO PRN ×2 (05:36→13:03)
[2019-04-22] MEDS: MULTIVIT W/MINERALS TAB (THERAGRAN M) PO SCH (05:37)
[2019-04-22] MEDS: inSUlin ASPART/PROTA (NovoLOG 70/30) CHARGE PER UNIT SQ SCH ×2 (05:37→17:05)
[2019-04-22] MEDS: inSUlin ASPART (NovoLOG) 1 UNIT/0.01 ML (CHARGE PER UNIT) SC SCH ×3 (05:38→16:49)
[2019-04-22 06:25] LABS: HEMOGLOBIN 10.7 G/DL (13.3-17.7)
--- NOTE | 2019-04-22 07:08 | Progress Note ---
Standard Progress Note Progress Notes/Assess & Plan Date Seen by a Provider: Apr 22, 2019 Time Seen by a Provider: 07:07 Progress/Assessment & Plan no complaint radiographs--HW well positioned without fracture LLE-- 2 plus DP pulse with brisk cap refill. Intact DF and PF of toes and ankle. sensation intact throughout. s/p LTKA mobilize as able Final Diagnosis no complaints Vital Signs Date Time Temp Pulse Resp B/P (MAP) Pulse Ox O2 Delivery O2 Flow Rate FiO2 04/22/19 06:28 99.1 04/22/19 01:36 99.1 101 21 167/79 (108) 96 Room Air 04/22/19 00:00 98.2 04/21/19 21:26 Nasal Cannula 2.00 04/21/19 20:00 100 Nasal Cannula 2.00 04/21/19 19:32 99.4 103 22 195/96 (129) 100 Room Air 04/21/19 19:00 24 04/21/19 16:04 98.7 98 24 181/88 (119) 94 Nasal Cannula 2.00 04/21/19 12:00 98.8 83 20 189/98 (128) 95 Nasal Cannula 2.00 04/21/19 08:00 Nasal Cannula 2.00 04/21/19 08:00 98.4 91 18 145/87 (106) 96 Nasal Cannula 2.00 I & O 04/22/19 07:00 Intake Total 3186 ml Output Total 1850 ml Balance 1336 ml Laboratory Tests Test 04/21/19 11:31 04/21/19 16:07 04/21/19 20:02 04/22/19 05:27 Range/Units Glucometer 221 H 235 H 207 H 216 H 70-110 MG/DL Test 04/22/19 06:00 Range/Units Hemoglobin 10.7 L 13.3-17.7 G/DL Hematocrit 33 L 40-54 % LLE--incision clean and dry. No calf tenderness. Neg Ricardo's s/p LTKA DC after PT today APRIL URIBE MD Apr 22, 2019 07:08
[2019-04-22] MEDS ORDERED: morphine INJ 4 MG/ML 1 ML (VIAL/SYRINGE) IVP PRN (07:15)
--- NOTE | 2019-04-22 07:30 | Progress Note - Hospitalist ---
OPAL CÁRDENAS,MED STUDENT 04/22/19 7:30am: Subjective HPI/CC On Admission Date Seen by Provider: Apr 22, 2019 Time Seen by Provider: 06:30 Pt is a 68CM with a PMH of IDDMII, HTN who was admitted postoperatively following left TKA. He denies any complaints to me at this time. States his pain is present but manageable and is about to work with PT. No other complaints or concerns. I am consulted for medical management. Subjective/Events-last exam Patient says that he is feeling better and that his pain is controlled by the oral pain meds. He denies fever, chills, nausea, vomiting, chest pain, stomach pain. He admits to SOB. Objective Exam Vital Signs Vital Signs Date Time Temp Pulse Resp B/P (MAP) Pulse Ox O2 Delivery O2 Flow Rate FiO2 04/22/19 08:00 Nasal Cannula 2.00 04/22/19 08:00 98.3 93 18 167/76 (106) 92 Capillary Refill : Less Than 3 Seconds General Appearance: No Apparent Distress, WD/WN, Obese Respiratory: Chest Non Tender, Lungs Clear, No Accessory Muscle Use, No Respiratory Distress, Other (Patient had quick breathing when lying down but improved with head of bed was raised to greater than 30 degrees ) Cardiovascular: Regular Rate, Rhythm, No Edema, No Gallop, No Murmur, Normal Peripheral Pulses Gastrointestinal: No Pulsatile Mass, Non Tender, Soft Extremity: Normal Capillary Refill, Non Tender, No Calf Tenderness Neurologic/Psychiatric: Alert, Oriented x3, Normal Mood/Affect Results/Procedures Lab Laboratory Tests 04/22/19 06:00 Patient resulted labs reviewed. Assessment/Plan Assessment and Plan Assess & Plan/Chief Complaint Left knee surgery - management per primary IDDM - monitor blood sugar - continue insulin tx HTN - monitor BP and restart amlodipine as needed - continue ARB High cholesterol - continue atorvastatin CPAP - have family bring it from home FENGIPPX diabetic diet SCDs and ASA and lovenox Clinical Quality Measures DVT/VTE Risk/Contraindication: Risk Factor Score Per Nursin RFS Level Per Nursing on Admit: 4+=Very High SHIRA JIMENEZ MD 04/22/19 12:02pm: Assessment/Plan Assessment and Plan Assess & Plan/Chief Complaint Pt continues to do well. No complaints today. DC order per Dr Marshall. Plan to return to the half-way. Diagnosis/Problems Diagnosis/Problems (1) Osteoarthritis of left knee Qualifiers: Qualified Codes: M17.12 - Unilateral primary osteoarthritis, left knee (2) Essential (primary) hypertension Status: Chronic (3) Insulin dependent diabetes mellitus Status: Chronic Supervisory-Addendum Brief Verification & Attestation Participated in pt care: history, MDM, physical Personally performed: exam, history, MDM, supervision of care Care discussed with: Medical Student Procedures: n/a Results interpretation: Verified all documentation Verification and Attestation of Medical Student E/M Service A medical student performed and documented this service in my presence. I re viewed and verified all information documented by the medical student and made modifications to such information, when appropriate. I personally performed the physical exam and medical decision making. Shira Jimenez, Apr 22, 2019,11:59 OPAL CÁRDENAS,MED STUDENT Apr 22, 2019 7:30 am SHIRA JIMENEZ MD Apr 22, 2019 12:02 pm
[2019-04-22] MEDS: ONDANSETRON 4 MG/2 ML (SDV) Z0FRAN IVP PRN (07:41)
[2019-04-22] MEDS: ENOXAPARIN 40 MG/0.4 ML (LOVENOX) SYR SC SCH (07:42)
[2019-04-22 08:00] VITALS: BP 167/76
[2019-04-22] MEDS: SENNA W/DOCUSATE (SENOKOT S) TABLET PO SCH (08:06)
[2019-04-22] MEDS: ATORVASTATIN 10 MG (LIPITOR) TABLET PO SCH (08:06)
[2019-04-22] MEDS: ASPIRIN E.C. 81 MG (ECOTRIN) TAB PO SCH (08:07)
[2019-04-22] MEDS: FLUTICASONE NASAL SPRAY (FLONASE) 16 GM BTL NS SCH (08:07)
--- NOTE | 2019-04-22 08:17 | NUR ---
Wasted 90ml morphine from ENGRAVER PANTOGRAPH pump, witnessed by Denice SEE
--- NOTE | 2019-04-22 09:48 | Physical Therapy Daily Note ---
PT Daily Note-Current Subjective Patient agrees to PT. Pain Numeric Pain Scale: 8 Location: Left Location Body Site: Knee Pain Description: Acute Mental Status Patient Orientation: Person, Time, Situation Attachments: Oxygen Transfers Therapy Code Descriptions/Definitions Functional [place] Measure: 0=Not Assessed/NA 4=Minimal Assistance 1=Total Assistance 5=Supervision or Setup 2=Maximal Assistance 6=Modified [place] 3=Moderate Assistance 7=Complete [place] Therapy Quality Codes: 6 Independent with activity with or without an assistive device 5 Patient requires set up or clean up by helper. Patient completes activity by themselves 4 Supervision or touching assist (CGA). [place] provide cues , steadying assist 3 The helper provides less than half the effort to complete the activity 2 The helper provides more than half the effort to complete the activity 1 Dependent. The helper does all the effort to complete an activity 7 Patient refused to complete or attempt activity 9 The patient did not perform the activity before the current illness or injury 88 Not attempted due to Medical conditions or safety concerns Transfers (B, C, W/C) (FIM): 6 Scootin Supine to/from Sit: 6 Sit to/from Stand: 6 Bed to/from Chair: 6 Weight Bearing Weight Bearing/Tolerated Gait Training Gait (FIM): 6 Distance (FIM): 3=150 ft Distance: 150' Gait Level of Assist: 6 Gait Assistive Device: FWW slow, antalgic gait sequence Exercises Supine Ex: Ankle pumps, Quad Set, Knee to chest, Straight leg raise Supine Reps: 15 (AAROM) Seated Therapy Exercises: Long arc quads Seated Reps: 15 (AAROM) Assessment Patient tolerated treatment well and is up in recliner with needs met. Plan dismissal to [place] on this date. PT Short Term Goals Short Term Goals Time Frame: Apr 27, 2019 Transfers (B,C,W/C) (FIM): 4 Gait (FIM): 1 Gait Distance Comment: 40' Gait Level of Assist: 4 Gait Assistive Device: FWW PT Plan Treatment/Plan Treatment Plan: Discontinue PT, goals met Treatment Plan: Bed Mobility, Education, Functional Activity Carlos, Functional Strength, Gait, Safety, Therapeutic Exercise, Transfers Treatment Duration: Apr 27, 2019 Frequency: 11 times per week Estimated Hrs Per Day: .25 hour per day Patient and/or Family Agrees t: Yes Time/GCodes Time In: 831 Time Out: 854 Total Billed Treatment Time: 23 Total Billed Treatment 1 visit EX 14 min GT 9 min JEAN URBANO PT Apr 22, 2019 09:48
--- NOTE | 2019-04-22 12:39 | NUR ---
IRF Evaluation Order received to evaluate patient for the ARU. Chart review complete and it appears patient is transferring and ambulating (150ft, RW) with modified independence; therefore, patient does not require intensive therapies, at this time. Thank you for this referral.
--- NOTE | 2019-04-22 12:43 | Occupational Ther Daily Note ---
OT Current Status-Daily Note Subjective Pt sitting in chair, agrees to therapy. Mental Status/Objective Therapy Code Descriptions/Definitions Functional [place] Measure: 0=Not Assessed/NA 4=Minimal Assistance 1=Total Assistance 5=Supervision or Setup 2=Maximal Assistance 6=Modified [place] 3=Moderate Assistance 7=Complete [place] Attachments: Oxygen ADL-Treatment Pt declined to complete dressing at this time. Grooming tasks completed while seated. Pt brushed teeth and washed face with set up. Pt requests to return to bed. Sit to stand with minimal assistance from low chair. Transfer to bed with SBA using FWW. Sit to supine with assist for left LE. Pt resting in bed with needs met after session. Grooming (FIM): 5 OT Short Term Goals Short Term Goals Time Frame: Apr 28, 2019 Eating(FIM): 5 Grooming(FIM): 5 Bathing(FIM): 4 Upper Body Dressing(FIM): 5 Lower Body Dressing(FIM): 4 Toileting(FIM): 4 Transfers (B,C,W/C) (FIM): 4 Toilet/Commode Transfer(FIM): 4 Additional Short Term Goals: 1-Demonstrate ADL Tasks, 2-Verbalize Understanding, 3-ImproveStrength/Carlos 1=Demonstrate adherence to instructed precautions during ADL tasks. 2=Patient will verbalize/demonstrate understanding of assistive devices/modif ications for ADL. 3=Patient will improve strength/tolerance for activity to enable patient to perform ADL's. OT Digital Advertising Analyst Goals [place] Goals Time Frame: May 05, 2019 Eating (FIM): 6 Grooming(FIM): 6 Bathing(FIM): 5 Upper Body Dressing(FIM): 5 Lower Body Dressing(FIM): 5 Toileting(FIM): 6 Transfers (B,C,W/C) (FIM): 6 Toilet/Commode Transfer(FIM): 6 Shower Transfer(FIM): 5 Additional Goals: 1-Demonstrate ADL Tasks, 2-Verbalize Understanding, 3- ImproveStrength/Carlos 1=Demonstrate adherence to instructed precautions during ADL tasks. 2=Patient will verbalize/demonstrate understanding of assistive devices/modifications for ADL. 3=Patient will improve strength/tolerance for activity to enable patient to perform ADL's. OT Education/Plan Discharge Recommendations Plan/Recommendations: Continue POC Treatment Plan/Plan of Care Patient would benefit from OT for education, treatment and training to promote independence in ADL's, mobility, safety and/or upper extremity function for ADL's. Plan of Care: ADL Retraining, Functional Mobility, UE Funct Exercise/Act Treatment Duration: May 05, 2019 Frequency: 5 times per week Estimated Hrs Per Day: .25 hour per day Agreement: Yes Rehab Potential: Good Time/GCodes Start Time: 10:32 Stop Time: 10:45 Total Time Billed (hr/min): 13 Billed Treatment Time 1 visit, ADL(12minutes) QAMAR VALERIO OT Apr 22, 2019 12:43
--- NOTE | 2019-04-22 13:32 | NUR ---
CM/SS patient discharging this day. Discharge information sent to [facility]. They will transport this day, stated could not transport until after 2:30pm. RNing updated.
--- NOTE | 2019-04-22 13:38 | NUR ---
[facility] [place] director called and said that Dr. Marshall needs to be aware that pt will not be eligible for PT/OT if he doesn't stay in the hospital for 3 days, Victoria in social services analyst notified of this situation.
--- NOTE | 2019-04-22 14:21 | NUR ---
CM/SS spoke with Kenroy Nelson (DPOA) he wanted to know what could do to get the patient the 3 midnights for the patient to have Skilled. He was told that without being Skilled he was not going to receive therapies. Discussed that the facility should be able to provide therapies regardless of skilled status. Message left for [place] with [facility] with call back information.
--- NOTE | 2019-04-22 14:31 | NUR ---
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 I spoke with the psychiatric social worker there (unsure of her name). She reported that because the patient did not have three midnights they needed us to keep him here until he had reached that requirement. I explained to her that we have discharge orders in place from the discharging physician et can not keep patients at the hospital so that they can have 3 midnights as this would be fraudulent. She again said that they would not be picking Juanjo up until tomorrow and were waiting on a phone call back from the physician to confirm this. I encouraged her that we were talking about the same physician but she was not accepting of this et reported that they would need confirmation from him. I asked to speak to their administator to discuss their concerns but she said she was on vacation. She agreed to let me speak with their FAHAD [place]. She transferred me et no one picked up. I terminated the call after being on hold for several minutes. I called [facility] RUIZ et he confirmed that they had discharged the patient from the hospital. Pt is ambulating 150FT with FWW et assist X1 staff, O2 requirements are at his baseline, et he is taking oral pain medication for pain control. I called [facility] again et this time spoke with a nurse [place]. She expressed that they et the family would like the patient to stay here one more midnight so that the patient "could have the best benefits of therapy." I encouraged her that we would also like for the patient to receive skilled therapies but that we could not justify keeping the patient at the hospital as an inpatient when he no longer met that criteria et also when the physician had discharged the patient. She reported that the nurse administrator is on vacation but that the FAHAD Daisy would call me back in 5 minutes. I received a call back from [place]. She reports that they received a phone call from Dr. Marshall/Gregorio et they confirmed with them that they had discharged the patient. She reports that they will fruit picker machine operator their resident today but that it will be after 6p.m. d/t other residents being at dialysis. I confirmed that would be fine et our psychiatric social worker will refax discharge orders to them as they have not received them yet. Their nurse administrator's name is Kimber Mo for future follow up.
[2019-04-22] MEDS ORDERED: diphenhydrAMINE 25 MG TAB (BENADRYL) PO PRN (14:45)
[2019-04-22 16:00] VITALS: BP 157/89
--- NOTE | 2019-04-22 17:00 | NUR ---
Report called to Rina RN at [facility] facility
--- NOTE | 2019-04-22 20:32 | DISCHARGE SUMMARY ---
DATE OF SERVICE: DIAGNOSES: 1. Left knee primary osteoarthritis. 2. Chronic renal failure. 3. Chronic obstructive pulmonary disease. 4. Diabetes type 2. 5. Allergic rhinitis. 6. Hyperlipidemia. 7. Hypertension. PROCEDURE: Left total knee arthroplasty. SUMMARY: The patient is a 68-year-old gentleman who underwent a left total knee arthroplasty on the day of admission. Postoperatively, he did well. At the time of discharge, his wound was clean and dry. No calf tenderness. Negative Homans sign. He was ambulating with a walker. CONDITION AT DISCHARGE: Good. DISCHARGE DIET: Diabetic. FOLLOWUP: Followup is in three weeks. DISPOSITION: Transferred to assisted living facility. ACTIVITIES: Weightbearing as tolerated with walker. Home physical therapy has been arranged. DISCHARGE MEDICATIONS: Home medications and Percocet as well as aspirin. Job ID: [id number] DocumentID: [id number] Dictated Date: 04/22/2019 07:01:21 Packing Machine Tender Date: 04/22/2019 20:31:35 Dictated By: APRIL URIBE MD
== END 2019-04-22 17:10 | disposition home health service (06) | DRG 470 ==
LOC: 4TH 06:07 → SURG 06:08 → 4TH 10:10
PROVIDERS: ADMIT Orthopaedic Surgery; ATTEND Orthopaedic Surgery
PROC: 0SRD0J9 Replacement of Left Knee Joint with Synthetic Substitute, Cemented, Open Approach (ICD-10-PCS; principal; 2019-04-20 07:24)
DX: M17.12 Unilateral primary osteoarthritis, left knee (principal); E11.9 Type 2 diabetes mellitus without complications; I12.9 Hypertensive chronic kidney disease with stage 1 through stage 4 chronic kidney disease, or unspecified chronic kidney disease; N18.9 Chronic kidney disease, unspecified; Z68.42 Body mass index [BMI] 45.0-49.9, adult; J44.9 Chronic obstructive pulmonary disease, unspecified; J30.9 Allergic rhinitis, unspecified; E78.00 Pure hypercholesterolemia, unspecified; E78.5 Hyperlipidemia, unspecified; G47.33 Obstructive sleep apnea (adult) (pediatric); F32.9 Major depressive disorder, single episode, unspecified; E66.01 Morbid (severe) obesity due to excess calories; K21.9 Gastro-esophageal reflux disease without esophagitis; K59.09 Other constipation; F17.220 Nicotine dependence, chewing tobacco, uncomplicated; F17.210 Nicotine dependence, cigarettes, uncomplicated; Z79.4 Long term (current) use of insulin
CPT/HCPCS: 36415; 73560; 82962; 85014; 85018; 86850; 86900; 86901; 94664